=== PATIENT | male | born 1980 | race Hispanic/Latino ===

== ENCOUNTER 2018-05-01 11:31 | Emergency (ER) | payer BC, SELFPAY ==
[2018-05-01] MEDS ORDERED: NA CHLORIDE 0.9% 1,000 ML ONE (12:00)
[2018-05-01] MEDS ORDERED: ASPIRIN 81 MG CHEWABLE TABLET ONE (12:30)
[2018-05-01] MEDS ORDERED: METOPROLOL TAR 25 MG TAB ONE (12:30)
[2018-05-01 12:35] LABS: Absolute Lymphocytes (CBC) 0.8 K/uL (0.7-4.9); Absolute Monocytes 0.4 K/uL (0.1-1.3); Absolute Neutrophil 7.9 K/uL (1.8-8.0); Basophils % 0.2 % (0-1.3); Eosinophils % 0.2 % (0-4.4); Hematocrit 44.9 % (39.6-49.0); Lymphocytes % 8.8 % (15.3-44.8); MCH 30.4 pg (27.0-35.0); MCV 88.9 fL (80-100); MPV 8.8 fL (7.6-11.3); Monocytes % 4.5 % (3.3-12.3); RBC Red Blood Cell Count 5.05 M/uL (4.33-5.43)
[2018-05-01 12:44] LABS: Protime INR 1.02
[2018-05-01 12:55] LABS: ALT/SGPT 43 U/L (12-78); AST/SGOT 24 U/L (15-37); Albumin 3.8 g/dL (3.4-5.0); Alkaline Phosphatase 115 U/L (45-117); BUN Blood Urea Nitrogen 11 mg/dL (7-18); Bicarbonate 26 mmol/L (21-32); Bilirubin Direct 0.1 mg/dL (0-0.2); Bilirubin Total 0.3 mg/dL (0.2-1.0); CKMB Creatine Kinase MB 2.5 ng/mL (0.3-3.6); Creatine Phosphokinase 255 U/L (39-308); Glucose Level 112 mg/dL (74-106); Magnesium 1.9 mg/dL (1.8-2.4); NT PRO-BNP 16 pg/mL (<125); Potassium 3.9 mmol/L (3.5-5.1); Protein, Total 7.1 g/dL (6.4-8.2); Sodium Level 138 mmol/L (136-145)
--- NOTE | 2018-05-01 13:12 | RAD REPORT ---
EXAM DESCRIPTION: RAD - Chest Single View - 05/01/2018 12:54 pm CLINICAL HISTORY: SOB Chest pain. COMPARISON: No comparisons FINDINGS: Portable technique limits examination quality. The lungs are grossly clear. The heart is normal in size. No displaced fractures. IMPRESSION: No acute intrathoracic process suspected.
--- NOTE | 2018-05-01 13:59 | EKG ---
Test Date: 2018-05-01 Test Time: 11:29:31 Sprinkler Inspector: DIALLO MEASUREMENT RESULTS: Intervals: Rate: 74 UT: 144 QRSD: 92 QT: 386 QTc: 428 [place]: P: 23 UT: 144 QRS: 4 T: 21 INTERPRETIVE STATEMENTS: Normal sinus rhythm Minimal voltage criteria for LVH, may be normal variant Borderline ECG No previous ECG available for comparison Electronically Signed On 05-01-18 13:58:39 CDT by Ross Landaverde
[2018-05-01 15:00] LABS: Blood Morphology Comment NOT SEEN (NOT SEEN); Platelet Estimate ADEQ; Urine White Blood Cell Casts OK
--- NOTE | 2018-05-01 15:06 | EDPHYS ---
Physician Documentation [facility] Name: Michael Alford Age: 37 yrs Sex: Male : 1980 Arrival Date: 05/01/2018 Time: 11:33 Bed 20 Private MD: ED Physician Ashu Santos HPI: 05/01 11:48 This 37 yrs old Male presents to ER via EMS with complaints of Dizziness, cp Chest Pressure. 11:48 The patient presents with lightheadedness. Onset: The symptoms/episode began/occurred cp this morning. Associated signs and symptoms: Pertinent positives: chest pain, Pertinent negatives: blurred vision, diaphoresis, focal weakness, near-syncope, syncope, vomiting. Patient's baseline: Neuro: alert and fully oriented, Motor: no deficits, Ambulation: walks without assistance, Speech: normal. 11:48 Patient reports he was at work today when dizziness started and chest pressure. Patient cp reports he has not been taking prescribed metoprolol since running out. Historical: - Allergies: 11:42 No Known Allergies; ae1 - Home Meds: 11:42 Metoprolol Tartrate Oral [Active]; ae1 - PMHx: 11:42 Hypertension; ae1 - PSHx: 11:42 None; ae1 - Immunization history:: Adult Immunizations not up to date. - Social history:: Smoking status: Patient uses tobacco products, smokes one-half pack cigarettes per day. - Ebola Screening: : Patient negative for fever greater than or equal to 101.5 degrees Fahrenheit, and additional compatible Ebola Virus Disease symptoms Patient denies exposure to infectious person Patient denies travel to an Ebola-affected area in the 21 days before illness onset. ROS: 11:55 Constitutional: Negative for body aches, chills, fever, poor PO intake. cp 11:55 Eyes: Negative for injury, pain, redness, and discharge. cp 11:55 ENT: Negative for drainage from ear(s), ear pain, sore throat, difficulty swallowing, difficulty handling secretions. 11:55 Cardiovascular: Positive for chest pressure, Negative for edema, palpitations. 11:55 Respiratory: Negative for cough, shortness of breath, wheezing. 11:55 Abdomen/GI: Negative for abdominal pain, vomiting, diarrhea, constipation, black/tarry stool, rectal bleeding. 11:55 Back: Negative for pain at rest, pain with movement, radiated pain. 11:55 Neuro: Positive for dizziness, Negative for altered mental status, headache, syncope, near syncope, weakness. 11:55 All other systems are negative. Exam: 11:35 ECG was reviewed by the Attending Physician. cp 12:00 Constitutional: The patient appears in no acute distress, alert, awake, cp non-diaphoretic, non-toxic, well developed, well nourished. 12:00 Head/Face: Normocephalic, atraumatic. Eyes: Pupils equal round and reactive to light, cp extra-ocular motions intact. Lids and lashes normal. Conjunctiva and sclera are non-icteric and not injected. Cornea within normal limits. Periorbital areas with no swelling, redness, or edema. ENT: Nares patent. No nasal discharge, no septal abnormalities noted. Tympanic membranes are normal and external auditory canals are clear. Oropharynx with no redness, swelling, or masses, exudates, or evidence of obstruction, uvula midline. Mucous membranes moist. Neck: Trachea midline, no thyromegaly or masses palpated, and no cervical lymphadenopathy. Supple, full range of motion without nuchal rigidity, or vertebral point tenderness. No Meningismus. Chest/axilla: Normal chest wall appearance and motion. Nontender with no deformity. No lesions are appreciated. Cardiovascular: Regular rate and rhythm with a normal S1 and S2. No gallops, murmurs, or rubs. Normal PMI, no JVD. No pulse deficits. Respiratory: Lungs have equal breath sounds bilaterally, clear to auscultation and percussion. No rales, rhonchi or wheezes noted. No increased work of breathing, no retractions or nasal flaring. Abdomen/GI: Soft, non-tender, with normal bowel sounds. No distension or tympany. No guarding or rebound. No evidence of tenderness throughout. Skin: Warm, dry with normal turgor. Normal color with no rashes, no lesions, and no evidence of cellulitis. Neuro: Awake and alert, GCS 15, oriented to person, place, time, and situation. Cranial nerves II-XII grossly intact. Motor strength 5/5 in all extremities. Sensory grossly intact. Cerebellar exam normal. Normal gait. Vital Signs: 11:34 BP 146 / 93; Pulse 77; Resp 18; Temp 98.5(O); Pulse Ox 97% on R/A; Weight 112.94 kg (R);ae1 12:41 BP 144 / 77; Pulse 61; Resp 16; Pulse Ox 95% on R/A; ae1 14:19 BP 117 / 60; Pulse 62; Resp 17; Pulse Ox 96% on R/A; ae1 15:37 BP 118 / 62; Pulse 63; Resp 18; Pulse Ox 99% on R/A; ae1 MDM: 11:34 Patient medically screened. cp 12:00 Differential diagnosis: cardiac arrhythmia, CVA, generalized weakness, hypovolemia, cp idiopathic dizziness, TIA, vertigo. 15:04 Data reviewed: vital signs, nurses notes, lab test result(s), EKG, radiologic studies, cp plain films. 15:04 Test interpretation: by ED physician or midlevel provider: ECG, plain radiologic cp studies. Counseling: I had a detailed discussion with the patient and/or guardian regarding: the historical points, exam findings, and any diagnostic results supporting the discharge/admit diagnosis, the presence of at least one elevated blood pressure reading (>120/80) during this emergency department visit, lab results, radiology results, the need for outpatient follow up, a family practitioner, to return to the emergency department if symptoms worsen or persist or if there are any questions or concerns that arise at home. Response to treatment: the patient's symptoms have markedly improved after treatment, VSS. Blood pressure improved. Will discharge to home for continued monitoring. 05/01 11:44 Order name: Basic Metabolic Panel; Complete Time: 14: cp 05/01 14:27 Interpretation: Normal except: GLUC 112; CA 8.2. cp 05/01 11:44 Order name: CBC with Diff; Complete Time: 15:19 cp 05/01 14:26 Interpretation: Normal except: APOLLO% 86.3; LYM% 8.8. cp 05/01 11:44 Order name: Ckmb; Complete Time: 14: cp 05/01 11:44 Order name: CPK; Complete Time: 14: cp 05/01 11:44 Order name: LFT's; Complete Time: 14: cp 05/01 11:44 Order name: Magnesium; Complete Time: 14: cp 05/01 11:44 Order name: NT PRO-BNP; Complete Time: 14: cp 05/01 11:44 Order name: PT-INR; Complete Time: 14:26 cp 05/01 11:44 Order name: Ptt, Activated; Complete Time: 14:26 cp 05/01 11:44 Order name: Troponin (emerg Dept Use Only); Complete Time: 12:54 cp 05/01 12:54 Interpretation: TROPED < 0.02; Reviewed. cp 05/01 11:44 Order name: XRAY Chest (1 view); Complete Time: 14:26 cp 05/01 12:39 Order name: CBC Smear Scan; Complete Time: 15:19 EDMS 05/01 11:44 Order name: EKG; Complete Time: 11:45 cp 05/01 11:44 Order name: Cardiac monitoring; Complete Time: 11:47 cp 05/01 11:44 Order name: EKG - Nurse/Tech; Complete Time: 11:47 cp 05/01 11:44 Order name: IV Saline Lock; Complete Time: 11:47 cp 05/01 11:44 Order name: Labs collected and sent; Complete Time: 14:18 cp 05/01 11:44 Order name: O2 Per Protocol; Complete Time: 11:47 cp 05/01 11:44 Order name: O2 Sat Monitoring; Complete Time: 11:47 cp 05/01 11:44 Order name: Urine Dipstick-Ancillary (obtain specimen) cp EC:35 Rate is 74 beats/min. Rhythm is regular. VT interval is normal. QRS interval is normal. cp QT interval is normal. No ST changes noted. Interpreted by me. Reviewed by me. Administered Medications: 12:15 Drug: NS 0.9% 1000 ml Route: IV; Rate: 1 bolus; Site: left antecubital; ae1 15:40 Follow up: IV Status: Completed infusion ae1 12:30 Drug: Aspirin Chewable Tablet 324 mg Route: PO; ae1 15:40 Follow up: Response: No adverse reaction ae1 12:30 Drug: Metoprolol 25 mg Route: PO; ae1 15:40 Follow up: Response: Blood pressure is lowered ae1 Disposition: 05/02 07:20 Co-signature as Attending Physician, Ashu Santos MD I agree with the assessment and chris plan of care. Disposition: 05/01/18 15:05 Discharged to Home. Impression: Hypertensive heart disease, Dizziness. - Condition is Stable. - Discharge Instructions: Dizziness, Hypertension, How to Take Your Blood Pressure, [id number], Managing Your Hypertension. - Prescriptions for Metoprolol Tartrate 25 mg Oral Tablet - take 1 tablet by ORAL route 2 times per day with a meal; 20 tablet. - Medication Reconciliation Form, Thank You Letter, Antibiotic Education, Prescription Opioid Use, Work release form form. - Follow up: Private Physician; When: 2 - 3 days; Reason: Recheck today's complaints. - Problem is new. - Symptoms have improved. Signatures: Dispatcher [employer] EDAshu Schaeffer MD MD cha Page, Corey, PA PA cp Bryce Colón RN RN ae1 Corrections: (The following items were deleted from the chart) 05/01 14:27 14:26 Normal except: GLUC 112. cp cp 15:39 15:05 05/01/2018 15:05 Discharged to Home. Impression: Hypertensive heart disease; ae1 Dizziness. Condition is Stable. Forms are Medication Reconciliation Form, Thank You Letter, Antibiotic Education, Prescription Opioid Use. Follow up: Private Physician; When: 2 - 3 days; Reason: Recheck today's complaints. Problem is new. Symptoms have improved. cp
--- NOTE | 2018-05-01 15:06 | ER ---
Nurse's Notes [facility] Name: Michael Alford Age: 37 yrs Sex: Male : 1980 Arrival Date: 05/01/2018 Time: 11:33 Bed 20 Private MD: Diagnosis: Hypertensive heart disease;Dizziness Presentation: 05/01 11:38 Presenting complaint: EMS states: EMS states patient was at work when he suddenly ae1 became dizzy and short of breath. Patient c/o chest pressure. Transition of care: patient was not received from another setting of care. Onset of symptoms was May 01, 2018 at 10:45. Risk Assessment: Do you want to hurt yourself or someone else? Patient reports no desire to harm self or others. Initial Sepsis Screen: Does the patient meet any 2 criteria? No. Patient's initial sepsis screen is negative. Does the patient have a suspected source of infection?. Care prior to arrival: IV initiated. 18 GA, in the left antecubital area, Oxygen administered. via nasal cannula. 11:38 Method Of Arrival: EMS: [facility] ae1 11:38 Acuity: HARRISON 3 ae1 11:45 Presenting complaint: EMS states: Patient states he has HTN and has been out of his ae1 medication for approximately a month. Triage Assessment: 11:40 General: Appears in no apparent distress. comfortable, Behavior is calm, cooperative. ae1 Pain: Complains of pain in right clavicle, left clavicle, anterior aspect of right upper chest and anterior aspect of left upper chest. EENT: No signs and/or symptoms were reported regarding the EENT system. Neuro: Level of Consciousness is awake, alert, obeys commands, Oriented to person, place, time, situation. Cardiovascular: Patient's skin is warm and dry. Respiratory: Airway is patent Respiratory effort is even, unlabored, Respiratory pattern is regular, symmetrical. GI: No signs and/or symptoms were reported involving the gastrointestinal system. : No signs and/or symptoms were reported regarding the genitourinary system. Derm: Skin is dry, Skin is normal, Skin temperature is warm. Musculoskeletal: No signs and/or symptoms reported regarding the musculoskeletal system. Historical: - Allergies: 11:42 No Known Allergies; ae1 - Home Meds: 11:42 Metoprolol Tartrate Oral [Active]; ae1 - PMHx: 11:42 Hypertension; ae1 - PSHx: 11:42 None; ae1 - Immunization history:: Adult Immunizations not up to date. - Social history:: Smoking status: Patient uses tobacco products, smokes one-half pack cigarettes per day. - Ebola Screening: : Patient negative for fever greater than or equal to 101.5 degrees Fahrenheit, and additional compatible Ebola Virus Disease symptoms Patient denies exposure to infectious person Patient denies travel to an Ebola-affected area in the 21 days before illness onset. Screenin:42 Abuse screen: Denies threats or abuse. Nutritional screening: No deficits noted. ae1 Tuberculosis screening: No symptoms or risk factors identified. Fall Risk None identified. Assessment: 11:43 General: Appears in no apparent distress. Behavior is calm, cooperative. Pain: Pain ae1 does not radiate. Pain began suddenly. Neuro: Level of Consciousness is awake, alert, obeys commands, Oriented to person, place, time, situation. Neuro: Reports dizziness. Cardiovascular: Heart tones S1 S2 present. Cardiovascular: Reports chest pressure. Respiratory: Reports shortness of breath at rest on exertion Airway is patent Respiratory effort is even, unlabored, Respiratory pattern is regular, symmetrical, Breath sounds are clear bilaterally. GI: No signs and/or symptoms were reported involving the gastrointestinal system. Patient currently denies nausea. : No signs and/or symptoms were reported regarding the genitourinary system. EENT: No signs and/or symptoms were reported regarding the EENT system. Derm: Skin is dry, Skin is normal, Skin temperature is warm. Musculoskeletal: No signs and/or symptoms reported regarding the musculoskeletal system. 14:20 Reassessment: Patient appears in no apparent distress at this time. Patient and/or ae1 family updated on plan of care and expected duration. Pain level reassessed. Patient states feeling better. 14:50 Reassessment: Patient appears in no apparent distress at this time. Patient and/or ae1 family updated on plan of care and expected duration. Pain level reassessed. Respiratory: Airway is patent Respiratory effort is even, unlabored, Respiratory pattern is regular, symmetrical. Vital Signs: 11:34 BP 146 / 93; Pulse 77; Resp 18; Temp 98.5(O); Pulse Ox 97% on R/A; Weight 112.94 kg (R);ae1 12:41 BP 144 / 77; Pulse 61; Resp 16; Pulse Ox 95% on R/A; ae1 14:19 BP 117 / 60; Pulse 62; Resp 17; Pulse Ox 96% on R/A; ae1 15:37 BP 118 / 62; Pulse 63; Resp 18; Pulse Ox 99% on R/A; ae1 ED Course: 11:33 Patient arrived in ED. ae1 11:34 Ashu Rodriguez PA is PHCP. cp 11:34 Ashu Santos MD is Attending Physician. cp 11:34 EKG done, by digital field service technician. reviewed by Ashu Santos MD. at1 11:40 Triage completed. ae1 11:42 Maintain EMS IV. Dressing intact. Good blood return noted. Site clean \T\ dry. Gauge \T\ ae 1 site: 18 left AC. Patient maintains SpO2 saturation greater than 95% on room air. 11:43 Arm band placed on right wrist. EKG completed in triage. Results shown to MD. ae1 11:43 Bed in low position. Call light in reach. Side rails up X2. clinical implementation specialist on. Pulse ae1 ox on. NIBP on. 11:46 Bryce Colón, AMBIKA is Primary Nurse. ae1 12:49 X-ray completed. Portable x-ray completed in exam room. Patient tolerated procedure mh1 well. 12:51 XRAY Chest (1 view) In Process Unspecified. EDMS 15:38 No provider procedures requiring assistance completed. IV discontinued, intact, ae1 bleeding controlled, No redness/swelling at site. Pressure dressing applied. Administered Medications: 12:15 Drug: NS 0.9% 1000 ml Route: IV; Rate: 1 bolus; Site: left antecubital; ae1 15:40 Follow up: IV Status: Completed infusion ae1 12:30 Drug: Aspirin Chewable Tablet 324 mg Route: PO; ae1 15:40 Follow up: Response: No adverse reaction ae1 12:30 Drug: Metoprolol 25 mg Route: PO; ae1 15:40 Follow up: Response: Blood pressure is lowered ae1 Outcome: 15:05 Discharge ordered by . cp 15:38 Discharged to home ambulatory. ae1 15:38 Condition: stable 15:38 Discharge instructions given to patient, Instructed on discharge instructions, follow up and referral plans. medication usage, Demonstrated understanding of instructions, Prescriptions given X 1. 15:39 Patient left the ED. ae1 Signatures: Dispatcher [employer] EDMS Shannon Manzano mh1 Emily beauchamp, photo manager EKG Tat1 Ashu Rodriguez PA PA cp Elliott, Andrea, RN RN ae1
== END 2018-05-01 15:39 | disposition home or self-care (01) ==
LOC: ER 11:31
DX: I11.9 Hypertensive heart disease without heart failure (principal); I10 Essential (primary) hypertension; F17.210 Nicotine dependence, cigarettes, uncomplicated
CPT/HCPCS: 36415; 71045; 80048; 80076; 82550; 82553; 83735; 83880; 84484; 85025; 85610; 85730; 93005; 96360; 96361; 99285; J7030